=== PATIENT | female | born 1955 | race Caucasian/White ===

== ENCOUNTER 2025-03-24 12:18 | Emergency (ER) | payer MEDICARE, BC, SELFPAY ==
--- NOTE | 2025-03-24 12:20 | ED_ITS ---
HPI - General Adult General Date Seen: 03/24/25 Chief complaint: Head Injury/Pain Stated complaint: having sharp pain on back of head- was at ER last Time Seen by Provider: 03/24/25 12:20 History of Present Illness HPI narrative: 69-year-old female presenting to the emergency department this afternoon with concern for a sharp pain in the back of her. She has no previous records in the [place] system but does have records in the [facility] system. Per the [facility] medical record she has a past medical history of splenic artery pseudoaneurysm, spinal stenosis, lumbar radiculopathy, mitral valve disorder, vitamin-D deficiency, reflux esophagitis, gallstones, DCIS of breast, anxiety/depression. Per medical record she was seen in the ER in [place] yesterday [facility] was at work at 12 PM when she felt a sudden shooting pain in her head. Describes it as lightning bolts on my head. Pain previously shot into ear, but is no longer. History of jolting pain with vertigo that did not feel similar to current symptoms. Believes pain is in her scalp or bone, on the right side of her head towards the back. Episodes are intermittent and vary in length and intensity, but always a zinging pain. Head tender on only right side. Pain does not radiate to face. She has taken Tylenol for pain. No history of shingles. She has gotten the shingles vaccine. Patient denied additional symptoms at this time. CT scan of her brain showed: No acute intracranial noncontrast CT findings. A subcentimeter partially calcified lesion at the right posteroinferior zara/middle cerebellar peduncle is unchanged since at least as far back as a 05/18/2024 CT and better characterized on prior MRI imaging. It looks like she was given Tylenol, gabapentin, Toradol, oxcarbazepine, sumatriptan for treatment of the headache in the ER. Patient confirms the above history and notes that she did get better so with the meds given in the ER yesterday but the shocks and explosions in the back of her head did not resolved. She was able to sleep a few hours, about 4 hours overnight and then was awoken from sleep by recurrent and frequent episodes of this electric shock, explosion like pain affecting the back on the right side of her scalp. No other symptoms. Hearing is normal. Vision is normal. No fever. No neck pain. No headache. No numbness or tingling in her arms or legs. No rash. No recent injury. She does wear a CPAP and wonders if the strap on the CPAP could have been rubbing the back of her scalp. She recalls that she had some sort of lesion in her brain that was discovered on MRI last year and she saw some specialist at a [facility] and [facility] last year and was told that they did not know what the lesion was and that she can have a biopsy of it if she wanted or they can just keep an eye on it. MRI brain 09/16/2024 through [facility] IMPRESSION: 1. No acute infarction or other acute intracranial pathology. 2. 5 millimeter enhancing nodule along the right petrous ridge, possibly a tiny meningioma versus a vascular structure. Stable. 3. Stable cavernoma right brachium pontis/pontine junction. Please obtain susceptibility weighted imaging on follow-up examination. 4. No other significant interval change. NSG Consult 06/01/24 Minda Galicia is seen in the Neurosurgery office today for evaluation of an unusual lesion within the brainstem. She had an episode of vertigo, which was short lived and completely resolved and underwent an MRI scan of the brain. This demonstrated an area most compatible with hemosiderin staining in the right pontomedullary junction. There does appear to be some additional abnormality extending into the extraaxial space. Interestingly, her son had a vestibular schwannoma. There is no history of neurofibromatosis in the family. The patient is currently asymptomatic. ? At this point, I am not sure what this lesion is. It could be a cavernous malformation. I think some type of neoplastic process along the lines of a schwannoma is much less likely. My recommendation would be to have a 3-month followup MRI scan and if the lesion remains stable, check her once a year thereafter. I also offered her the option of visiting with a genetic counselor to be evaluated for neurofibromatosis, although I doubt that this is the issue. She will be in touch with us sooner if there are questions or concerns or if she develops more dizziness or vertigo. DAVY MARES MD Related Data Home Medications ?Medication ?Instructions ?Recorded ?Confirmed escitalopram oxalate 20 mg tablet 20 mg PO DAILY 03/24/25 03/24/25 gabapentin 100 mg capsule 100 mg PO DAILY 03/24/25 03/24/25 oxcarbazepine 150 mg tablet 150 mg PO BID 03/24/25 03/24/25 Allergies Allergy/AdvReac Type Severity Reaction Status Date / Time codeine Allergy Mild horroble Verified 03/24/25 12:32 nausea Exam Narrative: Exam Narrative: Constitutional: Appears well-developed and well-nourished. Alert. Conversant. Non toxic. HENT: Head: Atraumatic. No depressed skull fracture, Raccoon Eyes, Gamez's sign, or hemotympanum. Face normal. TMs normal Nose: Nose normal. Mouth/Throat: Oral mucosa is clear and moist. no trismus. Pharynx normal. Tonsils symmetric. No tonsillar enlargement, erythema, or exudate. Eyes: Conjunctivae normal. EOM normal. Pupils equal, round, and reactive to light. No scleral icterus. Neck: Normal range of motion. Neck supple. No tracheal deviation present. Cardiovascular: Normal rate, regular rhythm. No gallop. No friction rub. No murmur heard. Symmetric radial artery pulses Pulmonary/Chest: Effort normal. No stridor. No respiratory distress. No wheezes. No rales. No rhonchi Musculoskeletal: RUE: Normal range of motion. No tenderness. No deformity LUE: Normal range of motion. No tenderness. No deformity RLE: Normal range of motion. No edema. No tenderness. No deformity LLE: Normal range of motion. No edema. No tenderness. No deformity Lymph: No cervical adenopathy. Neurological: Mental status normal. Attention normal. Alert and oriented x3. GCS 15. Memory normal. Speech fluent. Cognition normal. Cranial Nerves intact II-XII except I did not formally test gag or visual acuit y. EOMI. Palate elevates symmetrically and tongue protrudes in the midline. Strength: 5/5 trapezius on the right and left 5/5 deltoid on the right and left 5/5 biceps on the right and left 5/5 triceps on the right and left 5/5 revenue enforcement collection agent on the right and left 5/5 thumb opposition on the right and le ft 5/5 finger abduction on the right and le ft 5/5 hip flexors (L3) on the right and le ft 5/5 quadriceps (L4) on the right and lef t 5/5 tibialis anterior on the right and l eft 5/5 EHL (L5) on the right and left 5/5 gastrocnemius (S1) on the right and left 5/5 hamstring on the right and left Sensation intact to light touch in both upper extremities (C4-T1) Sensation intact to light touch in Both lower extremities (L4-S1). Finger to nose and coordination normal. Gait normal. Skin: Skin is warm and dry. No rash noted. No pallor. Normal capillary refill. Psychiatric: Normal mood. Normal affect. Const: Vital Signs, click to edit/add: Vital Signs - 24 hr 03/24/25 12:26 03/24/25 15:36 03/24/25 18:08 Temperature 98.1 F Pulse Rate Pulse Rate [Right Pulse Oximeter] 68 75 80 Respiratory Rate 18 16 18 Blood Pressure [Le ft Upper Arm] 128/83 122/76 130/97 H Pulse Oximetry 98 98 97 Oxygen Delivery Me thod Room Air Room Air 03/24/25 19:00 03/24/25 19:15 Temperature Pulse Rate 70 63 Pulse Rate [Right Pulse Oximeter] Respiratory Rate 16 Blood Pressure [Le ft Upper Arm] Pulse Oximetry 90 93 Oxygen Delivery Me thod Course Course ED Course: Patient seen and evaluated in ER room 2. She was having frequent sharp lancinating episodes of pain in the right occipital scalp that made her wince because of discomfort. We discussed options for treatment and she want to go ahead soon as possible with an occipital nerve block. Verbal consent was obtained. Procedure: Right greater and lesser occipital nerve block Using sterile prep with alcohol swab I injected 5 mL of 0.25% bupivacaine on a landmark based approach in attempt to anesthetize the greater occipital nerve. Patient had some relief in her symptoms but was still having sharps of stabs of pain. We then injected 5 mL of 0.25% bupivacaine in a landmark based approach to block the lesser occipital nerve. Aspiration prior to both injections confirm there were not in a vascular space. There were no complications noted from the injection. She did note substantial improvement in the severity and frequency of pain but it did not completely resolve. Reevaluation(s) Reevaluation #1: Recheck-she did have improvement but not complete resolution of her symptoms after the nerve block. Neurontin ordered. Recheck-after considerable waiting we were air able to make consult with the neurosurgery service from [facility] where she was seen before. Discussed with their nurse practitioner. That provider advises that we should obtain MRI with and without contrast double-checked the previous lesion in the brain stem. Call back if there is any substantial change. MRI arrange for 4:30 p.m. Recheck-patient back from MRI. Reports that she is now having recurrence of the bad repetitive fairly frequent sharp stabbing pains in the right occipital part of her head. It appears that my previous occipital nerve blocks have worn off. She said she had pretty good pain relief for several hours but then while she was in MRI things got worse again. Discussed options with the patient and she agreed to attempt another occipital nerve block. This time will use combination of 0.25% bupivacaine and Solu- Medrol. Procedure: Right greater and lesser occipital nerve block Using sterile prep with alcohol swab I injected 3 mL of 0.25% bupivacaine mixed with 1 mL of Solu-Medrol on a landmark based approach in attempt to anesthetize the greater occipital nerve. Patient had some relief in her symptoms but was still having sharps of stabs of pain. We then injected 3 mL of 0.25% bupivacaine mixed with 1 mL Solu-Medrol in a landmark based approach to block the lesser occipital nerve. Aspiration prior to both injections confirm there were not in a vascular space. There were no complications noted from the injection. She did note substantial improvement in the severity and frequency of pain . She was smiling after the pain relief. Recheck-she is having recurring pain. This occipital nerve block was less effective than 1st 1. She will need more pain medication. Although she has nausea from opiates. I think we have to give her some Dilaudid. She agrees. Dilaudid and Zofran administered Recheck-feeling woozy but less intense pain. Discussed plan of care with the patient. At this point I think she is safe to discharge home. I recommend that she increase her dose of oxcarbazepine up to 300 mg twice a day. Will also give her a prescription for oxycodone that she can use for breakthrough pain. Also Zofran for nausea. Recommend that she follow-up as soon as possible with the neurologist that she had been referred to yesterday. Invited to return to the ER with any uncontrolled pain or other worsening symptoms. Vital Signs Vital signs: Initial Vital Signs Temperature 98.1 F 03/24/25 12:26 Temperature Source Temporal Artery Scan 03/24/25 12:26 Pulse Rate 68 03/24/25 12:26 Respiratory Rate 18 03/24/25 12:26 Blood Pressure 128/83 03/24/25 12:26 Blood Pressure Mean 98 03/24/25 12:26 Blood Pressure Position Sitting 03/24/25 12:26 Pulse Oximetry 98 03/24/25 12:26 Oxygen Delivery Method Room Air 03/24/25 12:26 Vital Signs Temperature 98.1 F 03/24/25 12:26 Pulse Rate 68 03/24/25 12:26 Respiratory Rate 18 03/24/25 12:26 Blood Pressure 128/83 03/24/25 12:26 Pulse Oximetry 98 03/24/25 12:26 Oxygen Delivery Method Room Air 03/24/25 12:26 Temperature 98.1 F 03/24/25 12:26 Pulse Rate 63 03/24/25 19:15 Respiratory Rate 16 03/24/25 19:00 Blood Pressure 130/97 H 03/24/25 18:08 Pulse Oximetry 93 03/24/25 19:15 Oxygen Delivery Method Room Air 03/24/25 18:08 Medications Administered Medications: Generic Name Dose Route Start Last Admin Trade Name Freq PRN Reason Stop Dose Admin Hydromorphone HCl 0.5 mg 03/24/25 18:45 03/24/25 18:52 Hydromorphone 0.5 Mg/0.5 Ml Inj IVP 0.5 mg Q1H PRN Administration Pain Discontinued Medications Generic Name Dose Route Start Last Admin Trade Name Freq PRN Reason Stop Dose Admin Bupivacaine HCl 30 ml 03/24/25 12:44 03/24/25 13:27 Bupivacaine 0.25% 30 Ml INJECTION 03/24/25 12:45 30 ml ONCE ONE Administration Diphenhydramine HCl 12.5 mg 03/24/25 14:40 03/24/25 15:07 Diphenhydramine 50 Mg/Ml Inj IVP 03/24/25 14:41 12.5 mg ONCE ONE Administration Gabapentin 300 mg 03/24/25 13:25 03/24/25 13:38 Gabapentin 300 Mg Capsule PO 03/24/25 13:26 300 mg ONCE ONE Administration Ketorolac Tromethamine 15 mg 03/24/25 14:40 03/24/25 15:07 Ketorolac 15 Mg/Ml Inj IVP 03/24/25 14:41 15 mg ONCE ONE Administration Methylprednisolone Sodium Succinate 125 mg 03/24/25 18:05 03/24/25 18:14 Methylprednisolone Sod Succ 62.5 Mg/Ml (125) IM 03/24/25 18:06 125 mg ONCE ONE Administration Metoclopramide HCl 10 mg 03/24/25 14:40 03/24/25 15:07 Metoclopramide Hcl 5 Mg/Ml Inj IVP 03/24/25 14:41 10 mg ONCE ONE Administration Ondansetron HCl 4 mg 03/24/25 18:45 03/24/25 18:52 Ondansetron 2 Mg/Ml Inj IVP 03/24/25 18:46 4 mg ONCE ONE Administration Medical Decision Making MDM Narrative Medical decision making narrative: Very pleasant 69-year-old female presents to the ER today for evaluation of very sharp stabbing electrical shock, explosion like pains that occur in very brief 1-2 seconds abscess affecting the right occipital scalp. She is not having any associated neck pain. No other symptoms such as numbness, tingling weakness, hearing change, blurry vision, or other stroke symptoms. Symptoms began yesterday. She was already seen in the [place] ER for this and had a negative noncontrast head CT. On my clinical exam and history I suspect this is probably occipital neuralgia. Fortunately she has no other neurologic symptoms. Skin exam shows no evidence for shingles or infection. However she also has a history of some sort of a spot or tumor affecting the back of her brain or something in her brainstem that was detected on MRI last year. Attempted look up results, as above, through the [facility] system. In consultation with Neurosurgery they recommended reimaging with brain MRI with and without contrast to see if anything has changed with that previous spot. We obtain that imaging as well as MR angiogram of her head and neck. 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 There is no sign that it has been bleeding or rupturing or expanding. No evidence for any other vascular anomaly such as vertebral dissection, occlusion, or aneurysm on her MRA. With reassuring neuro imaging, we suspect that this probably a peripheral occipital neuralgia. First nerve block provided substantial but only temporary relief. Because there was a substantial delay waiting for MRI availability this afternoon, the anesthetic wore off before we discharge . I performed a 2nd occipital nerve block with a combination of bupivacaine/Solu-Medrol in hopes of achieving more sustained analgesia.. This was only minimally effective. Will try oral pain medications at home. See above. Outpatient neurology follow-up. ER precautions reviewed. Lab Data Labs: Lab Results 03/24/25 Range/Units 14:50 POC Creatinine 0.7 (0.6-1.3) mg/dl Imaging Data MRI Brain, MRA Head and Neck: Attestation: I have reviewed the pertinent imaging results. Radiologist's impression: MRI brain: Mild diffuse cerebral volume loss. No mass effect or midline shift. Few punctate FLAIR hyperintensities in the supratentorial white matter, typical for minimal chronic microvascular ischemic changes. Peripherally T2 hypointense, centrally T2 hyperintense 6 mm lesion within the caudal right anjali zara demonstrating susceptibility blooming (series 5, image 10), compatible with a small cavernous malformation. No perilesional edema. No recent intracranial hemorrhage or pathologic extra-axial fluid collection. No diffusion restriction to suggest acute infarction. No concerning pathologic intracranial enhancement. The major arterial flow voids of the skull base are preserved. Thinning of the ocular lenses. Mild ethmoid sinus mucosal thickening. Mastoid air cells are clear. MRA head: The internal carotid, middle cerebral, and anterior cerebral arteries are widely patent. The vertebral, basilar, and posterior cerebral arteries are widely patent. No intracranial aneurysm or high-flow vascular malformation. MRA neck: The innominate and subclavian arteries are widely patent. The common carotid arteries are widely patent. The internal carotid arteries are widely patent. The left vertebral artery is dominant. Vertebral arteries are widely patent. Impression: 1. No acute intracranial abnormality. 2. 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 No evidence of recent hemorrhage. 3. Mild diffuse cerebral volume loss and minimal chronic microvascular ischemic changes. 4. Widely patent cervical and intracranial vasculature. Discharge Plan Discharge Clinical Impression: Occipital neuralgia of right side Patient Disposition: Home, Self-Care Condition: Stable Instructions: Trigeminal Neuralgia (ED) Additional Instructions: Based on her workup so far we believe that you have a condition called occipital neuralgia (which is very similar to trigeminal neuralgia but involves a different nerve in the back of your head call the occipital nerve). This can be a very painful and difficult to treat condition. Please continue on the medication (oxcarbazepine) that was prescribed to you by the ER in [place] yesterday. I recommend that you increase your dose up to 300 mg by mouth twice daily. Use Tylenol 1000 mg every 6 hours as needed for breakthrough pain. Use the extra pain medication (oxycodone) if needed for additional pain relief. Be careful because oxycodone can count is dizziness, drowsiness, constipation, and can be addictive. Use the nausea medication (Zofran) if needed. Please follow-up with your neurologist as soon as you are able. As we discussed, if you have uncontrolled pain or other new concerning symptoms, please come back to the ER right away. Prescriptions: No Action oxcarbazepine 150 mg tablet 150 mg PO BID gabapentin 100 mg capsule 100 mg PO DAILY escitalopram oxalate 20 mg tablet 20 mg PO DAILY Follow Up/Referrals: Ciera Barnett MD [Primary Care Provider] - Stand Alone Forms: Superbly [employer] Instructions
[2025-03-24 12:26] VITALS: BP 128/83; PULSE 68; RESP 18; TEMP 36.7; O2SAT 98; BMI 29.1
[2025-03-24] MEDS: BUPIVACAINE 0.25% 30 ML INJECTION (13:27)
[2025-03-24] MEDS: GABAPENTIN 300 MG CAPSULE PO (13:38)
--- NOTE | 2025-03-24 14:40 | CRLHL7_ITS ---
For Patients: As a result of the Century Cures Act, medical imaging exams and procedure reports are released immediately into your electronic medical record. You may view this report before your referring provider. If you have questions, please contact your health care provider. Indication: Occipital headache. Technique: MRI brain: Multiplanar multisequence MR imaging prior to and following intravenous administration of 20 mL Dotarem. MRA head: [id number] imaging. MRA neck: [id number] and postcontrast imaging following intravenous administration of 20 mL Dotarem. Comparison: None. Findings: MRI brain: Mild diffuse cerebral volume loss. No mass effect or midline shift. Few punctate FLAIR hyperintensities in the supratentorial white matter, typical for minimal chronic microvascular ischemic changes. Peripherally T2 hypointense, centrally T2 hyperintense 6 mm lesion within the caudal right anajli zara demonstrating susceptibility blooming (series 5, image 10), compatible with a small cavernous malformation. No perilesional edema. No recent intracranial hemorrhage or pathologic extra-axial fluid collection. No diffusion restriction to suggest acute infarction. No concerning pathologic intracranial enhancement. The major arterial flow voids of the skull base are preserved. Thinning of the ocular lenses. Mild ethmoid sinus mucosal thickening. Mastoid air cells are clear. MRA head: The internal carotid, middle cerebral, and anterior cerebral arteries are widely patent. The vertebral, basilar, and posterior cerebral arteries are widely patent. No intracranial aneurysm or high-flow vascular malformation. MRA neck: The innominate and subclavian arteries are widely patent. The common carotid arteries are widely patent. The internal carotid arteries are widely patent. The left vertebral artery is dominant. Vertebral arteries are widely patent. Impression: 1. No acute intracranial abnormality. 2. 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 No evidence of recent hemorrhage. 3. Mild diffuse cerebral volume loss and minimal chronic microvascular ischemic changes. 4. Widely patent cervical and intracranial vasculature. Dictated by Abner Villegas MD @ 03/24/2025 5:59:16 PM (Electronically Signed)
--- OUTSIDE RECORDS SUMMARY | 2025-03-24 14:51 | XMS_ITS | Clinical Summary ---
Author Organization [facility] Address [address] [place] [id number] Care Team Providers Care Hospice Physician Name Role Phone Ciera Barnett MD Primary Care Provi zoey Allergies Active Allergy Reactions Criticality Noted Date Comments Codeine Nausea Only 12/04/2006 AND MOST PAIN MEDICATIONS Medications ACETAMINOPHEN/DIP HENHYDRAMINE (TYLENOL PM ORAL) Take by mouth. Active CPAPIndications:O SA (obstructive sleep apnea) CPAP machine for home use at pressure: 5-16 cmw , Heated humidifier x 1 q 5 yr, Humidifier chamber x 1 q 6 mo, nasal mask x1 q 3mos, With pillows x 2 q mo, Heated tubing x 1 q 3 mo, Headgear x 1 q 6 mo, Filters: Disposable x 2 q mo non-disposable filters x1 q 6mo, Length of Need: 99 months, Frequency of use: Daily 1 Device 11 10/31/20 20 Active medication order composerIndicatio ns:Vitamin D deficiency Vitamin D 3000IU once weekly 0 03/05/20 21 Active meclizine (ANTIVERT) 25 mg tabletIndications :Vertigo Take 1 Tablet (25 mg) by mouth 3 times daily if needed for Vertigo. 20 Tablet 05/18/20 24 Active diphenhydrAMINE (Benadryl Allergy) 25 mg tablet Take 50 mg by mouth at bedtime. Active escitalopram oxalate (LEXAPRO) 20 mg tabletIndications :Anxiety associated with depression Take 1 Tablet (20 mg) by mouth once daily in the morning. 90 Tablet 3 09/03/20 24 Active amoxicillin-clavu lanate (AUGMENTIN) 875-125 mg tabletIndications :Diverticulitis Take 1 Tablet by mouth two times daily with meals. 20 Tablet 10/12/20 24 Active gabapentin (NEURONTIN) 100 mg capsuleIndication s:Restless leg syndrome TAKE 1 CAPSULE(100 MG) BY MOUTH AT BEDTIME 90 Capsule 01/08/20 25 Active OXcarbazepine 150 mg tabletIndications :Trigeminal neuralgia Take 1 Tablet (150 mg) by mouth two times daily for 15 days. 30 Tablet 03/23/20 25 025 Active magnesium 250 mg tab Take 250 mg by mouth at bedtime. 025 Discontinu ed(*Med complete/R egimen complete/L evel of care change) cephalexin 500 mg capsuleIndication s:UTI (urinary tract infection), uncomplicated Take 1 Capsule (500 mg) by mouth two times daily for 7 days. 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 CTA yearly and visit with them yearly. 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 S/p 5 years of tamoxifen treatment. Getting yearly mammograms. Saw oncology in [place] most recently in 2011. Tendonitis of long head of biceps brachii of rig ht shoulder 07/12/2022 Incomplete tear of right rotator cuff 07/12/2022 Other foreign body or object entering through skin, initial encounter 06/28/2022 Strain of right rotator cuff capsule 11/19/2021 Subacromial bursitis of right shoulder joint Tear of medial meniscus of right knee, current 1 11/28/2020 Trigger middle finger of right hand 09/28/2021 Spinal stenosis of lumbar region 12/02/2019 Lumbar radiculopathy 12/02/2019 Calculus of gallbladder with acute on chronic cholecystitis without obstruction 11/11/2017 Chronic reflux esophagitis 07/11/2016 Anxiety associated with depression 07/10/2016 Thyroid enlarged 01/26/2016 Overview (09/03/2024): FNA 2022 with abnormal tissue sampling, consider repeat in 3 months. Vitamin D deficiency 09/20/2010 Benign neoplasm of colon 03/11/2007 Overview (03/11/2007): Adenoma of the cecum: 2005 Assessment & Plan (09/13/2010 9:39 AM CDT): Normal colonoscopy 2008; due in 2013 Diffuse cystic mastopathy 12/04/2006 Mitral valve disorders 12/04/2006 Overview (09/03/2024): Mitral valve prolapse- mild 2015. Assessment & Plan (09/13/2010 9:40 AM CDT): Normal echocardiogram 2008 Macromastia Resolved Problems Problem Noted Date Diagnosed Date Resolved Date S/P arthroscopy of right knee 02/26/2022 04/09/2023 Acute pain of right shoulder 11/19/2021 04/09/2023 Calculus of gallbladder without cholecystitis 07/11/20 16 04/09/2023 Chest pain 07/10/2016 09/01/2020 Diverticulitis 07/10/2016 09/01/2020 assisted (current) use of anticoagulants 10/18/2011 11/12/2011 Major Depressive Disorder, R ecurrent, Severe without Psychotic Features 10/10/2011 09/13/2014 Generalized anxiety disorder 10/10/2011 09/13/2014 Alcohol abuse, unspecified 10/10/2011 0 06/25/2013 LBP (low back pain) 09/04/2009 05/20/20 22 Breast cancer 08/31/2009 07/31/2022 Overview (11/30/2019): Lumpectomy on the right followed by 6 weeks of radiation Weight gain 08/11/2008 09/01/2020 Major depression in complete remission 08/11/2008 04/09/2023 Depressive disorder, not elsewhere classified 12/04/19 07 08/11/2008 Polyp of colon 05/20/2022 Encounters Date Type Department Care Team Description 03/23/2025 6:21 PM CDT - 03/23/2025 10:54 PM CDT Emergency [facility] [address] [place] [address] Shellie Tripp PA Turek, Elizabeth A., RN Trigeminal neuralgia (Primary Dx) Discharge Disposition: Home Self Care 03/23/2025 Travel 03/08/2025 3:50 PM CDT Office Visit [facility] [address] [place] [phone] Ciera Barnett MD Urinary Problem (Achy feeling before and after but not during urination, has a strong acidic smell, smelled medicinal) 03/08/2025 Travel 03/03/2025 Travel 01/06/2025 Refill [facility] [address] [place] [phone] Ciera Barnett MD Refill Request (Gabapentin) from Last 3 Months Immunizations Immunization Administration Dates Next Due Amb Influenza, Inact (High-d ose Quadrivalent) (Flu Clinic Only) 08/28/2020 Amb Influenza, RIV3 (Age 18+ Years) Preserve Free (Flu Clinic Only) 09/13/2016 COVID-19 vaccine (Globalia NTech 30mcg/0.3mL) PF, MDV 02/28/2021,02/07/2021 Influenza, IIV3 (Age 6-35 mos) 09/28/2013,2010 Influenza, IIV3 (Age >=3 years) 10/10/20 11,09/13/2010,08/31/2009,2007,09/25/2006,10/26/2003 Influenza, IIV4 11/30/2019, 7,11/27/2015,2013 Influenza, Inactivated AIIV4 (Age 65+ Years) Preserv Free 09/03/2023,10/08/2021 Influenza, Inactivated IIV3 (Age 65+ Years) Preserv Free 10/12/2024 Influenza, RIV3 (Age =>18 Years) 09/13/2016 Pneumococcal Conj 20-valent (Prevnar 20) 05/20/2022 Pneumococcal Poly,23-Valent (Pneumovax) 09/01/2020 Td (Age >=7 Years) 08/19/1996 Td, Preservative Free (age > = 7 Years) 03/11/2007 Tdap 09/13/2014 Zoster (Shingrix-RZV, recombinant) 07/04/2022, Family History Medical History Relation Name Comments Cancer Brother 2 testicular Diabetes Father Hypertension Father Cancer Mother Lung Cancer-breast No Family History Relation Name Status Comments Brother 1 (Age 51) Brother 2 Father Mother Social History Tobacco Use Types Packs/Day Years Used Date Smoking Tobacco: Former Cigarettes 0.5 20 1 - 09/02/2002 Passive Smoke Exposure: Never Smokeless Tobacco: Never Tobacco Cessation:Counseling Given: Not Answered Alcohol Use Standard Drinks/Week Comments Yes 14 (1 standard drink = 0.6 oz pu re alcohol) PHQ-2 Answer Date Recorded PHQ-2 TOTAL SCORE 0 09/03/2024 Social Connections Answer Date Recorded Do you often feel lonely or isolated from those around you? 0 08/30/2024 Financial Resource Strain Answer Date R ecorded Difficulty of Paying Living Expenses 3 08/30/2024 Difficulty of Paying Living Expenses Not on file 08/30/2024 Food Insecurity Answer Date Recorded Do you worry your food will run out before you are able to buy more? 1 08/30/2024 Transportation Needs Answer Date Record ed Does lack of transportation keep you from medica l appointments? 1 08/30/2024 Does lack of transportation keep you from work, meetings or getting things that you need? 1 08/30/2024 Housing Stability Answer Date Recorded What is your housing situation today? 1 08/30/2024 Interpersonal Safety Answer Date Record ed Are you being hit, kicked, p ushed or yelled at (see row info)? No 03/23/2025 Interpersonal Safety Abuse 12 - 18 Not on file 03/23/2025 Interpersonal Safety Ambulatory Vulnerability No t on file 03/23/2025 Utilities Answer Date Recorded Do you have trouble paying f or utilities (for example, heat, electricity, water, phone)? 1 08/30/2024 Comments No Sex and Gender Information Value Date Recorded Sex Assigned at Not on file Legal Sex Female 6:12 AM AMALGAMATOR Gender Identity Not on file Sexual Orientation Not on file Occupation Industry Job Start Date Job End Date [employer] Not on file Not on file Not on f ile SOCIAL MEDIA JOB TITLES Not on file Not on file Not on file Obstetrics History Para Term AB IAB SAB Ectopic Multiple Livin g Live Births 4 2 2 0 2 0 2 0 0 2 Date Outcome GA Total Labor Labor/2nd/3rd Weight Sex Type Anes PTL Dhara A1 A5 Name Clin SAB SAB Term Term Last Filed Vital Signs Vital Sign Reading Time Taken Comments Blood Pressure 137/91 03/23/2025 10:03 PM CDT Pulse 66 03/23/2025 10:03 PM CDT Temperature 36.6 C (97.9 F) 03/23/2025 6:25 PM CDT Respiratory Rate 16 03/23/2025 6:25 PM CDT Oxygen Saturation 97% 03/23/2025 10:03 PM CDT Inhaled Oxygen Concentration - - Weight 84.4 kg (186 lb) 03/23/2025 6:25 PM CDT Height 170.2 cm (5' 7) 03/23/2025 6:25 PM CDT Body Mass Index 29.13 03/23/2025 6:25 PM CDT Plan of Treatment Health Maintenance Due Date Last Done Comments COVID-19 vaccine series ( season) 2024 02/28/2021, 02/07/2021 Tetanus booster 09/13/2024 09/13/2014, 02/22, 08/19/1996 Mammogram for age 45-75 06/23/2025 06/23/20 24, 04/17/2023, 08/01/2022, Additional history exists BMI (ht and wt on same day) for age 18+ 09/03/2025 09/03/2024, 10/09/2023, 08/04/2023, Additional history exists Depression screening for age 12+ 09/03/2025 09/03/2024, 08/04/2023, 05/28/2022, Additional history exists Medicare Wellness for age 65+ 09/04/2025, 08/04/2023, 05/20/2022, Additional history exists Colonoscopy through age 75 08/07/202608/07, 07/24/2016, 07/24/2016, Additional history exists Lipids for age 45-75 09/15/2029 09/15/2024, 03/05/2021, 11/30/2019, Additional history exists RSV vaccine for adults or (1 - 1-dose 75+ series) 2030 Tdap Completed 09/13/2014 Hepatitis C screening for ag e 18-79 Completed 11/30/2019 DEXA/DXA scan for age 65+ Completed 03/05/2021 Pneumococcal series for age 50+ Completed 2, 09/01/2020 Zoster (shingles) series for age 50+ Completed 07/04/2022, 12/28/2021 Influenza Vaccine Completed 10/12/2024, , 10/08/2021, Additional history exists Procedures Procedure Name Priority Date/Time Associated Diagnosis Comments CT HEAD BRAIN WO STAT 03/23/2025 7:08 PM CDT URINE CULTURE Add On 03/08/2025 4:00 PM CDT Dysuria URINALYSIS MICROSCOPIC STAT 03/08/2025 4:00 PM CDT Dysuria UA W/ SEDIMENT EXAM REFLEXED PER CRITERIA STAT 03/08/2025 4:00 PM CDT Dysuria LIPID PANEL W REFLEX MEASURED LDL Routine 09/15/2024 11:11 AM CDT Screening for hyperlipidemia XR MAMMO RAHAT BILAT SCREEN Routine 06/23/2024 10:54 AM CDT Encounter for other screening for malignant neoplasm of breast COLONOSCOPY 08/07/2021 8:10 AM CDT XR DXA BONE DENSITY 2 SITES AXIAL Routine 03/05/2021 3:46 PM CDT Menopause ANTI HCV Routine 11/30/2019 4:34 PM AMALGAMATOR Routine general medical examination at health care facility from Last 3 Months or Most Recently Relevant to Health Maintenance Results * CT HEAD BRAIN WO (03/23/2025 7:08 PM CDT) Anatomical Region Laterality Modality HEAD, BRAIN Computed Tomogra phy 03/23/2025 7:44 PM CDT Impressions 03/23/2025 7:44 PM CDT No acute intracranial noncontrast CT findings. A subcentimeter partially calcified lesion at the right posteroinferior zara/middle cerebellar peduncle is unchanged since at least as far back as a 05/18/2024 CT and better characterized on prior MRI imaging. Please note that all CT scans at this facility use dose modulation, iterative reconstruction, and/or weight-based dosing when appropriate to reduce radiation dose to as low as reasonably achievable. Dictated by Ward Romero MD @ 03/23/2025 7:44:07 PM (Electronically Signed) Narrative 03/23/2025 7:44 PM CDT For Patients: As a result of the Cures Act, medical imaging exams and procedure reports are released immediately into your electronic medical record. You may view this report before your referring provider. If you have questions, please contact your health care provider. INDICATION: Right-sided head pain COMPARISON: 09/16/2024 MRI of the brain TECHNIQUE: CT of the head without contrast. FINDINGS: Brain, ventricles, and extra-axial spaces: No acute intracranial hemorrhage. A subcentimeter partially calcified lesion at the right posteroinferior zara/middle cerebellar peduncle is unchanged since at least as far back as a 05/18/2024 CT and better characterized on prior MRI imaging. Olivera-white differentiation is grossly preserved. Minimal hypoattenuating changes in the white matter which are nonspecific, but commonly attributable to chronic microangiopathic change. Size of the ventricles and sulci appears to be commensurate with age. There are intracranial vascular calcifications. Bones: No acute osseous findings. Visualized paranasal sinuses are clear. Visualized mastoid air cells are clear. Procedure Note Ward Romero MD - 03/23/2025 For Patients: As a result of the 21st Century Cures Act, medical imagingexams and procedure reports are released immediately into your electronicmedical record. You may view this report before your referring provider.If you have questions, please contact your health care provider. INDICATION: Right-sided head pain COMPARISON: 09/16/2024 MRI of the brain TECHNIQUE: CT of the head without contrast. FINDINGS: Brain, ventricles, and extra-axial spaces: No acute intracranialhemorrhage. A subcentimeter partially calcified lesion at the rightposteroinferior zara/middle cerebellar peduncle is unchanged since atleast as far back as a 05/18/2024 CT and better characterized on prior MRIimaging. Olivera-white differentiation is grossly preserved. Minimalhypoattenuating changes in the white matter which are nonspecific, butcommonly attributable to chronic microangiopathic change. Size of theventricles and sulci appears to be commensurate with age. There areintracranial vascular calcifications. Bones: No acute osseous findings. Visualized paranasal sinuses are clear.Visualized mastoid air cells are clear. IMPRESSION: No acute intracranial noncontrast CT findings. A subcentimeter partially calcified lesion at the right posteroinferiorpons/middle cerebellar peduncle is unchanged since at least as far back asa 05/18/2024 CT and better characterized on prior MRI imaging. Please note that all CT scans at this facility use dose modulation,iterative reconstruction, and/or weight-based dosing when appropriate toreduce radiation dose to as low as reasonably achievable. Dictated by Ward Romero MD @ 03/23/2025 7:44:07 PM (Electronically Signed) Shellie SANDHU CT Final R esult * URINALYSIS MICROSCOPIC (03/08/2025 4:00 PM CDT) RBC 0-2 0-2, None Seen /HPF 03/08/2025 4:35 PM CDT [facility] WBC 0-2 0-2, 3-5, None Seen /HPF 03/08/2025 4:35 PM CDT [facility] BACTERIA Rare None Seen, Rare, Few Bacteria/H PF 03/08/2025 4:35 PM CDT [facility] EPITHELIAL CELLS Few None Seen, Few Epi/HPF 03/08/2025 4:35 PM CDT [facility] Urine URINE SPECIMEN / Unknown Non-Blood / Unknown 03/08/2025 4:00 PM CDT 03/08/2025 4:14 PM CDT us Ciera Barnett MD URINE Fin al Result [facility] [address] [place] [address] * (ABNORMAL) URINE CULTURE (03/08/2025 4:00 PM CDT) CULTURE RESULT(A) 03/11/2025 6:54 AM CDT [facility] CULTURE 10,000-50,000 CFU/mL Escherichia coli 03/11/2025 6:54 AM CDT [facility] Urine URINE SPECIMEN / Unknown Non-Blood / Unknown 03/08/2025 4:00 PM CDT 03/08/2025 4:14 PM CDT Narrative Organism Antibiotic Method Susceptibility Escherichia coli TRIMETHOPRIM/SULF <=19: S Escherichia coli AMPICILLIN >=32: R Escherichia coli CEFAZOLIN 2: S Escherichia coli CEFAZOLIN-UC 2: S Comment:Cefazolin-UC interpretations are for therapy of uncomplicated UTIs due to E.coli, K.pneumoniae, or P.mirablis. Cefazolin breakpoint is used as a surrogate to predict results for the oral agents - cefdinir, cefuroxime, and cephalexin, when used for therapy of uncomplicated UTIs due to E coli, K, pneumoniae, and P. mirabilis. The FDA recommends cefadroxil susceptibility can be deduced from cefazolin. Escherichia coli GENTAMICIN <=1: S Escherichia coli CEFTRIAXONE <=0.25: S Escherichia coli CEFTAZIDIME <=0.5: S Escherichia coli LEVOFLOXACIN <=0.12: S Escherichia coli CIPROFLOXACIN <=0.06: S Escherichia coli PIPERACILLIN/TAZO 8: S Escherichia coli AMPICILLIN/SULBACTAM 16: I Escherichia coli CEFEPIME <=0.12: S Escherichia coli MEROPENEM <=0.25: S Escherichia coli NITROFURANTOIN <=16: S us Ciera Barnett MD MICROBIOLOGY Fin al Result [facility] [address] [place] [address], [place] * (ABNORMAL) STAT Urinalysis w/ reflex to Microscopic (03/08/2025 4:00 PM CDT) COLOR Yellow Yellow Color 03/08/2025 4:33 PM T [facility] CLARITY Clear Clear Clarity 03/08/2025 4:33 PM [facility] SPECIFIC GRAVITY,URINE 1.015 1.010, 1.015, 1.020, 1.025 03/08/2025 4:33 PM [facility] PH,URINE 7.0 6.0, 7.0, 8.0, 5.5, 6.5, 7.5, 8.5 03/08/2025 4:33 PM [facility] UROBILINOGEN, QUALITATIVE Normal Normal EU/dl 03/08/2025 4:33 PM [facility] PROTEIN, URINE Negative Negative mg/dL 03/08/2025 4:33 PM [facility] GLUCOSE, URINE Negative Negative mg/dL 03/08/2025 4:33 PM [facility] KETONES,URINE Negative Negative mg/dL 03/08/2025 4:33 PM [facility] BILIRUBIN,URI NE Negative Negative 03/08/2025 4:33 PM [facility] OCCULT BLOOD,URINE Trace(A) Negative 03/08/2025 4:33 PM [facility] NITRITE Negative Negative 03/08/2025 4:33 PM [facility] LEUKOCYTE ESTERASE Negative Negative 03/08/2025 4:33 PM [facility] Urine URINE SPECIMEN / Unknown Non-Blood / Unknown 03/08/2025 4:00 PM CDT 03/08/2025 4:14 PM CDT us Ciera Barnett MD URINE Fin al Result [facility] [address] [place] [address] * (ABNORMAL) LIPID PANEL W REFLEX MEASURED LDL (09/15/2024 11:11 AM CDT) CHOLESTEROL, TOTAL 192 <200 mg/dL [facility] HDL CHOLESTEROL 69 > OR = 50 mg/dL [facility] TRIGLYCERIDES 97 <150 mg/dL [facility] LDL-CHOLESTEROL 104(H) mg/dL (calc) [facility] Comment: Reference range: <100 Desirable range <100 mg/dL for primary prevention; <70 mg/dL for patients with CHD or diabetic patients with > or = 2 CHD risk factors. LDL-C is now calculated using the Good calculation, which is a validated novel method providing better accuracy than the Friedewald equation in the estimation of LDL-C. Arturo ORTIZ et al. JESUS MANUEL. 2013;310(19): 5299-6094 (http://education.Pharmapod/faq/LCW986) CHOL/HDLC RATIO 2.8 <5.0 (calc) [facility] NON HDL CHOLESTEROL 123 <130 mg/dL (calc) [facility] Comment: For patients with diabetes plus 1 major ASCVD risk factor, treating to a non-HDL-C goal of <100 mg/dL (LDL-C of <70 mg/dL) is considered a therapeutic option. Blood BLOOD SPECIMEN / Unknown 09/15/2024 11:11 AM CDT 09/15/2024 11:12 AM CDT Narrative [facility] - 09/16/2024 3:34 AM CDT FASTING:YES FASTING: YES us Ciera Barnett MD CHEMISTRY Fin al Result [employer] [address] [address], [place] [phone] [facility] [address] [place] [address] * XR MAMMO RAHAT BILAT SCREEN (06/23/2024 10:54 AM CDT) Anatomical Region Laterality Modality BREASTS, Breast Left, Breast Right Bilateral Mammography Impressions 06/23/2024 11:28 AM CDT There is no radiographic evidence for malignancy. Recommend annual mammograms. MAMMOGRAM ASSESSMENT: ACR 2 Benign PATIENTS: You will also receive a letter with your examination results in an easy to read format. If you have questions about your results, please contact your referring provider. Narrative 06/23/2024 11:28 AM CDT For Patients: As a result of the Century Cures Act, medical imaging exams and procedure reports are released immediately into your electronic medical record. You may view this report before your referring provider. If you have questions, please contact your health care provider. XR MAMMO RAHAT BILAT SCREEN [[id number]] CLINICAL HISTORY: This is an asymptomatic 69 y.o. patient. INDICATION FOR EXAM: Mammogram Screening. TECHNIQUE: CC & MLO views were obtained. This study was evaluated with the assistance of Computer-Aided Detection. Breast Tomosynthesis was used in interpretation. COMPARISON FILMS: Yes 04/17/23 [facility] FINDINGS: There are scattered areas of fibroglandular density. No suspicious masses or microcalcifications. There are post surgical changes of right breast, There are post treatment changes of right breast, and Post biopsy changes of right breast. Ciera Barnett MD MAMMO Fin al Result * COLONOSCOPY (08/07/2021 8:10 AM CDT) 08/07/2021 8:10 AM CDT Narrative Transcriptions Marlon Pyle DO - 08/07/2021 8:42 AM CDT Patient Name: Minda Galicia Procedure Date: 08/07/2021 Gender: Female Date of : 1955 Admit Type: Ambulatory Procedure: Colonoscopy Proceduralist: Marlon Pyle MD [facility] Indications/Pre-Op Diagnosis: High risk colon cancer surveillance:Personal history of colonic polyps, Last colonoscopy5 years ago Medications: Propofol per Anesthesia Procedure Description: The patient had risks, benefits and alternatives explained to andgave informed consent. The patient had a stable cardiopulmonary status and judged an adequate candidate for conscious sedation. The colonoscope was passed through the anus and advanced to thececum, identified by appendiceal orifice and ileocecal valve. Thecolonoscopy was performed without difficulty. The patient tolerated the procedure well. The quality of the bowel preparation was good. The ileocecal valve, appendiceal orifice, and rectum were photographed. Complications: No immediate complications. Estimated Blood Loss & Specimen: Estimated blood loss: none. Specimen collected - Yes and sent to Laboratory Findings: An 8 mm polyp was found in the hepatic flexure. The polyp wassessile. The polyp was removed with a hot snare. Resection and retrieval were complete. Verification of patient identification for the specimen was done. Estimated blood loss was minimal. A 4 mm polyp was found in the rectum. The polyp wassemi-pedunculated. The polyp was removed with a hot snare. Resection and retrieval were complete. Verification of patient identification for the specimen was done. Estimated blood loss was minimal. Non-bleeding internal hemorrhoids were found during retroflexion. The hemorrhoids were Grade II (internal hemorrhoids that prolapse butreduce spontaneously). Many small-mouthed diverticula were found in the sigmoid colon. Impressions/Post-Op Diagnosis: - One 8 mm polyp at the hepatic flexure, removed with a hot snare. Resected and retrieved. - One 4 mm polyp in the rectum, removed with a hot snare. Resectedand retrieved. - Non-bleeding internal hemorrhoids. - Diverticulosis in the sigmoid colon. Recommendation: - Discharge patient to home. - Patient has a contact number available for emergencies. The signsand symptoms of potential delayed complications were discussed with the patient. Return to normal activities tomorrow. Written discharge instructions were provided to the patient. - High fiber diet. - Continue present medications. - Await pathology results. - Repeat colonoscopy in 5 years for surveillance. Moderate Sedation: Moderate (conscious) sedation was personally administered by an anesthesia professional. The following parameters were monitored:oxygen saturation, heart rate, blood pressure, and response to care. Marlon Pyle MD 08/07/2021 8:42:26 AM This report has been signed electronically. Note Initiated On: 08/07/2021 8:10 AM us Marlon Pyle DO PROCEDURE ORD Fi nal Result * XR DXA BONE DENSITY 2 SITES AXIAL [52687.1] (03/05/2021 3:46 PM CDT) Anatomical Region Laterality Modality Spine, HIPS, HIPL, HIPR Computed Radiography Impressions 03/06/2021 3:34 PM CDT Normal bone density. RECOMMENDATIONS: The National Osteoporosis Foundation recommends pharmacologic treatment for patients with T-scores of -2.5 or less, patients with prior history of fragility fractures, or patients with 10-year probability of greater than 3% at hips or greater than 20% of suffering major osteoporotic fractures. Recommend continued optimization of calcium and vitamin D intake through dietary means and/or supplementation and regular exercise. Repeat scan recommended in 7-10 years. Unless she is on current aromatase inhibitor. Narrative 03/06/2021 3:34 PM CDT XR DXA Bone Mineral Density (BMD) EXAM LOCATION: [address] [id number] PATIENT NAME: Minda A Galicia DATE OF : 1955 EXAM DATE: 03/05/2021 REQUESTING PROVIDER: Nazanin Irvin MD GENDER AT : female HEIGHT: 5' 6.7 (03/05/2021) WEIGHT: 173 lb 9.6 oz (03/05/2021) MENOPAUSAL STATUS: Postmenopausal RACE/ETHNICITY: White RISK FACTORS: AROMATASE INHIBITORS (ARIMIDEX, ETC.) CURRENT MEDICATION FOR BONE LOSS: NONE INDICATION: SCREENING FOR OSTEOPOROSIS COMPARISON DATE(S): None. DXA scans are compared to prior studies for a patient only when the two (or more) studies were performed on the same scanner. It is not possible to compare data generated on one scanner to data from another because there are not standards in DXA equipment. This applies even if the two scanners are made by the same craft manager. PROCEDURE: Dual-energy x-ray absorptiometry performed with routine technique. Reporting is completed in the form of a T-score. The T-score represents the standard deviation from peak bone mass based on young healthy adult. A Z-score is used for diagnosis in premenopausal women, and for men under the age of 50. FINDINGS: RESULT LUMBAR SPINE L1 - L4 BMD: 1.286 g/cm2 T-Score: 0.9 RESULT FOREARM Left Forearm BMD: 0.975 g/cm2 T-Score: 1.0 WHO criteria: Normal: T-score at or above -1 SD Osteopenia: T-score between -1.1 and -2.4 SD Osteoporosis: T-score at or below -2.5 SD Nazanin Irvin MD DEXA Final Re sult * ANTI HCV (11/30/2019 4:34 PM AMALGAMATOR) HEPATITIS C ANTIBODY Non-React alexia Non-React alexia 12/01/2019 4:36 PM [facility]GAMATOR [facility] Comment:Antibodies to HCV no t detected; does not exclude the possibility of exposure to HCV. Blood BLOOD SPECIMEN / Unknown Venipuncture / Unknown 11/30/2019 4:34 PM AMALGAMATOR 11/30/2019 4:37 PM AMALGAMATOR Nazanin Irvin MD SEND OUTS Final Re sult [facility] [address] [place] [address], from Last 3 Months or Most Recently Relevant to Health Maintenance Insurance MEDICARE PART B HB ONLY [place] BLUE HB ONLY MEDICARE PART A HB ONLY [place] BLUE MR PB ONLY [place] [id number] Advance Directives * Full Code (Latest Code Status on File) Date Activated Date Inactivated Comments 11/28/2021 7:41 AM 11/28/2021 4:06 PM Question Answer Comments Code Status Discussion: Reviewed Preferences * Full Code Date Activated Date Inactivated Comments 11/06/2021 10:48 AM 11/06/2021 8:24 PM Question Answer Comments Code Status Discussion: Reviewed Preferences * Full Code Date Activated Date Inactivated Comments 08/07/2021 6:49 AM 08/07/2021 11:35 AM Question Answer Comments Code Status Discussion: Discussed * Full Code Date Activated Date Inactivated Comments 07/10/2016 10:32 PM 07/11/2016 9:18 PM Question Answer Comments Code Status Discussion: Discussed * Full Code Date Activated Date Inactivated Comments 09/30/2008 10:08 AM 09/30/2008 5:16 PM Care Teams Hospice Physician Relationship Specialty Start Date End Date Ciera Barnett MD [facility] [place] [id number] PCP - General Family Practice 10/08/21
[2025-03-24 14:59] LABS: Creatinine, Point-of-Care* 0.7 mg/dl (0.6-1.3)
[2025-03-24] MEDS: KETOROLAC 15 MG/ML inj IVP (15:07)
[2025-03-24] MEDS: diphenhydrAMINE 50 MG/ML inj 12.5 MG IVP (15:07)
[2025-03-24] MEDS: METOCLOPRAMIDE HCL 5 MG/ML INJ 10 MG IVP (15:07)
[2025-03-24 15:36] VITALS: BP 122/76; PULSE 75; RESP 16; O2SAT 98
[2025-03-24 18:08] VITALS: BP 130/97; PULSE 80; RESP 18; O2SAT 97
[2025-03-24] MEDS: METHYLPREDNISOLONE SOD SUCC 62.5 MG/ML (125) 125 MG IM (18:14)
[2025-03-24] MEDS: HYDROmorphone 0.5 mg/0.5 ml inj IVP (18:52)
[2025-03-24] MEDS: ONDANSETRON 2 MG/ML inj 4 MG IVP (18:52)
[2025-03-24 19:00] VITALS: PULSE 70; RESP 16; O2SAT 90
[2025-03-24 19:15] VITALS: PULSE 63; O2SAT 93
== END 2025-03-24 19:40 | disposition home or self-care (01) ==
PROVIDERS: Emergency Provider Emergency Medicine; PCP Family Medicine
DX: M54.81 Occipital neuralgia (principal); G50.0 Trigeminal neuralgia
CPT/HCPCS: 64405; 70544; 70549; 70553; 82565; 94761; 96374; 96375; 99284; A9270; A9575; J0665; J1171; J1200; J1885; J2405; J2765; J2919

== ENCOUNTER 2025-10-12 12:59 | Outpatient (CLI) | payer MEDICARE, BC, SELFPAY ==
--- NOTE | 2025-10-12 13:00 | CRLHL7_ITS ---
For Patients: As a result of the Century Cures Act, medical imaging exams and procedure reports are released immediately into your electronic medical record. You may view this report before your referring provider. If you have questions, please contact your health care provider. INDICATION: Cavernous malformation. Meningioma. COMPARISON: 03/24/2025 and 09/16/2024. TECHNIQUE: Multiplanar T1, T2, FLAIR and diffusion-weighted imaging.. Post gadolinium T1 weighted sequences. Gadolinium 20 cc IV. FINDINGS: Mild generalized volume loss. Stable scattered foci of T2/FLAIR signal hyperintensity within the white matter of both cerebral hemispheres consistent with chronic deep white matter small vessel ischemic changes. There is a stable mild heterogeneous T2 hyperintense lesion of the right anjali zara measuring approximately 5 mm with surrounding susceptibility artifact (series 5, image 10; series 7, image 15) consistent with a cavernoma. No significant surrounding edema. No acute intracranial hemorrhage. No abnormal ventricular dilatation. Intracranial vascular flow voids are preserved. No midline shift. No mass effect. No abnormal enhancement or enhancing lesions within the brain parenchyma. There is a stable tiny 5 x 2 mm extra-axial enhancing nodule of the right cerebellopontine angle abutting the posterior margin of the right IAC (series 1001, image 123) may represent a tiny meningioma. Bilateral orbits are unremarkable. Normal appearing sella. Visualized paranasal sinuses mastoid air cells are unremarkable. IMPRESSION: 1. No interval change. 2. No acute intracranial abnormality 3. Mild generalized volume loss. Chronic deep white matter small vessel ischemic changes 4. 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 5. Stable tiny 5 x 2 millimeter extra-axial enhancing nodule of the right cerebellopontine angle which may represent a meningioma. Dictated by Constantin Rogers MD @ 10/13/2025 11:54:55 AM (Electronically Signed)
== END 2025-10-12 13:00 | disposition home or self-care (01) ==
LOC: MRI 13:00
PROVIDERS: PCP Family Medicine; Visit Provider Nurse Practitioner
DX: D32.9 Benign neoplasm of meninges, unspecified (principal)
CPT/HCPCS: 70553; A9575